=== PATIENT | female | born 1990 | race Caucasian/White ===

== ENCOUNTER 2019-11-17 18:05 | Emergency (ER) | payer OTHER ==
[~2019-11-17] VITALS: Ht 165.1 cm; Wt 77.8 kg
[2019-11-17 18:19] VITALS: BP 129/69
[2019-11-17] MEDS ORDERED: ACETAMINOPHEN 500 MG TABLET ONE (18:57)
[2019-11-17] MEDS ORDERED: ACETAMINOPHEN 500 MG TABLET PO ONE (19:00)
== END 2019-11-17 20:04 | disposition home or self-care (01) ==
LOC: ED 20:00
DX: S16.1XXA Strain of muscle, fascia and tendon at neck level, initial encounter (principal); S29.012A Strain of muscle and tendon of back wall of thorax, initial encounter; V49.09XA Driver injured in collision with other motor vehicles in nontraffic accident, initial encounter; Y93.89 Activity, other specified; Y92.410 Unspecified street and highway as the place of occurrence of the external cause; Y99.8 Other external cause status
CPT/HCPCS: 72072; 72125; 99284